=== PATIENT | male | born 1960 | race Caucasian/White ===

== ENCOUNTER 2017-08-22 10:47 | Outpatient (CLI) | payer OTHER ==
[2017-08-22 18:20] LABS: BASOPHILS # (AUTO) 0.1 10^3/uL (0.0-0.1); BASOPHILS % (AUTO) 0.8 %; EOSINOPHILS # (AUTO) 0.2 10^3/uL (0.0-0.7); EOSINOPHILS % (AUTO) 2.3 %; HGB - HEMOGLOBIN 16.2 g/dL (14.0-18.0); LYMPHOCYTES # (AUTO) 2.1 10^3/uL (1.5-3.5); MEAN CORPUSCULAR HEMOGLOBIN 30.5 pg (27.0-31.0); MEAN CORPUSCULAR HGB CONC 33.2 g/dL (32.0-36.0); MEAN PLATELET VOLUME 8.5 fL (7.4-11.4); MONOCYTES # (AUTO) 0.7 10^3/uL (0.0-1.0); MONOCYTES % (AUTO) 8.1 %; NEUTROPHILS # (AUTO) 5.2 10^3/uL (1.5-6.6); NEUTROPHILS % (AUTO) 62.8 %; PLT - PLATELET COUNT 188 10^3/uL (130-450); RED CELL DISTRIBUTION WIDTH 13.4 % (12.0-15.0); WHITE BLOOD COUNT 8.3 x10^3/uL (4.8-10.8)
[2017-08-22 18:33] LABS: ALBUMIN 4.2 g/dL (3.2-5.5); ALBUMIN/GLOBULIN RATIO 1.4 (1.0-2.2); ALKALINE PHOSPHATASE 47 IU/L (42-121); ALT ALANINE AMINOTRANSFERASE 21 IU/L (10-60); AST ASPARTATE AMINOTRANSFERASE 20 IU/L (10-42); BILIRUBIN,TOTAL 0.9 mg/dL (0.2-1.0); BUN - BLOOD UREA NITROGEN 16 mg/dL (6-20); CALCIUM 9.6 mg/dL (8.5-10.3); CARBON DIOXIDE - CO2 30 mmol/L (21-32); CHLORIDE 98 mmol/L (101-111); CHOL/HDL RATIO 5.4 (<5.0); CHOLESTEROL 225 mg/dL; CREATININE 0.8 mg/dL (0.6-1.2); GFR - MDRD 100 (>89); GLUCOSE 101 mg/dL (70-100); HDL CHOLESTEROL 42 mg/dL; LDL CHOLESTEROL,CALCULATED 170 mg/dL; SODIUM 138 mmol/L (135-145); TOTAL PROTEIN 7.2 g/dL (6.7-8.2); VLDL CHOLESTEROL 13 mg/dL
== END 2017-08-22 10:48 | disposition home or self-care (01) ==
LOC: LAB.F 10:47
PROVIDERS: ATTEND Physician Assistant Medical
DX: Z00.00 Encounter for general adult medical examination without abnormal findings (principal); E55.9 Vitamin D deficiency, unspecified
CPT/HCPCS: 36415; 80053; 80061; 82306; 84443; 85025

== ENCOUNTER 2017-09-10 13:18 | Outpatient (CLI) | payer OTHER | END 2017-09-10 13:19 | disposition home or self-care (01) | LOC: DI 13:18 | PROVIDERS: ATTEND Physician Assistant Medical | DX: R94.31 Abnormal electrocardiogram [ECG] [EKG] (principal); R07.89 Other chest pain; Z82.49 Family history of ischemic heart disease and other diseases of the circulatory system | CPT/HCPCS: 93306 ==

== ENCOUNTER 2018-10-08 08:07 | Outpatient (CLI) | payer OTHER ==
[2018-10-08 10:57] LABS: ALBUMIN 4.2 g/dL (3.2-5.5); ALBUMIN/GLOBULIN RATIO 1.4 (1.0-2.2); ALKALINE PHOSPHATASE 54 IU/L (42-121); ALT ALANINE AMINOTRANSFERASE 21 IU/L (10-60); AST ASPARTATE AMINOTRANSFERASE 23 IU/L (10-42); BUN - BLOOD UREA NITROGEN 14 mg/dL (6-20); CALCIUM 9.3 mg/dL (8.5-10.3); CARBON DIOXIDE - CO2 33 mmol/L (21-32); CHLORIDE 100 mmol/L (101-111); CHOL/HDL RATIO 3.3 (<5.0); CHOLESTEROL 192 mg/dL; CREATININE 0.8 mg/dL (0.6-1.2); GFR - MDRD 100 (>89); GLUCOSE 106 mg/dL (70-100); HDL CHOLESTEROL 58 mg/dL; SODIUM 138 mmol/L (135-145); TOTAL PROTEIN 7.1 g/dL (6.7-8.2)
[2018-10-08 11:17] LABS: LDL CHOLESTEROL,DIRECT 133 mg/dL; LDLD/HDL RATIO 2.3 (<3.6)
[2018-10-08 11:54] LABS: HB2 TOTAL 17.6 g/dL; HEMOGLOBIN A1C 0.69 g/dL; HEMOGLOBIN A1C % 5.7 % (4.6-6.2)
== END 2018-10-08 08:08 | disposition home or self-care (01) ==
LOC: LAB.F 08:07
PROVIDERS: ATTEND Internal Medicine
DX: Z00.00 Encounter for general adult medical examination without abnormal findings (principal); E78.5 Hyperlipidemia, unspecified; Z12.5 Encounter for screening for malignant neoplasm of prostate
CPT/HCPCS: 36415; 80053; 80061; 83036; 83721; 84153

== ENCOUNTER 2019-07-01 12:59 | Emergency (ER) | payer OTHER ==
[2019-07-01 13:32] LABS: BASOPHILS # (AUTO) 0.1 10^3/uL (0.0-0.1); BASOPHILS % (AUTO) 1.2 %; EOSINOPHILS # (AUTO) 0.2 10^3/uL (0.0-0.7); HGB - HEMOGLOBIN 15.6 g/dL (14.0-18.0); LYMPHOCYTES # (AUTO) 1.9 10^3/uL (1.5-3.5); LYMPHOCYTES % (AUTO) 32.6 %; MEAN CORPUSCULAR HEMOGLOBIN 32.7 pg (27.0-31.0); MEAN CORPUSCULAR HGB CONC 33.5 g/dL (32.0-36.0); MEAN CORPUSCULAR VOLUME 97.7 fL (80.0-94.0); MEAN PLATELET VOLUME 9.2 fL (7.4-11.4); MONOCYTES # (AUTO) 0.4 10^3/uL (0.0-1.0); MONOCYTES % (AUTO) 7.4 %; NEUTROPHILS # (AUTO) 3.2 10^3/uL (1.5-6.6); NEUTROPHILS % (AUTO) 55.6 %; PLT - PLATELET COUNT 170 10^3/uL (130-450); RED BLOOD COUNT 4.77 10^6/uL (4.70-6.10); RED CELL DISTRIBUTION WIDTH 13.3 % (12.0-15.0); WHITE BLOOD COUNT 5.7 x10^3/uL (4.8-10.8)
[2019-07-01 13:46] LABS: ALBUMIN 4.4 g/dL (3.2-5.5); ALBUMIN/GLOBULIN RATIO 1.4 (1.0-2.2); BILIRUBIN,TOTAL 0.6 mg/dL (0.2-1.0); CALCIUM 9.2 mg/dL (8.5-10.3); CREATININE 0.7 mg/dL (0.6-1.2); TOTAL PROTEIN 7.5 g/dL (6.7-8.2)
--- NOTE | 2019-07-01 14:14 | XRAY Report ---
Reason: chest pain Procedure Date: 07/01/2019 Accession Number: [id number] / [id number] Procedure: XR - Chest 2 View X-Ray CPT Code: 73803 Final Report FULL RESULT: EXAM: CHEST RADIOGRAPHY EXAM DATE: 07/01/2019 01:33 PM. CLINICAL HISTORY: Chest pain. COMPARISON: 09/21/2013 12:47 PM. TECHNIQUE: 2 views. FINDINGS: Lungs/Pleura: No focal opacities evident. No pleural effusion. No pneumothorax. Normal volumes. Mediastinum: Heart size and mediastinal contour are within normal limit. Multiple calcified hilar and mediastinal lymph nodes are again seen. Other: No acute osseous abnormalities. Gaseous distention of bowel in the upper abdomen. IMPRESSION: 1. No acute disease in the chest. 2. Prior granulomatous disease. RADIA
--- NOTE | 2019-07-01 14:16 | ED Physician Documentation ---
PD HPI CHEST PAIN - Stated complaint Stated Complaint: CHEST DISCOMFORT - Chief complaint Chief Complaint: Cardiac - History obtained from History obtained from: Patient - History of Present Illness Timing - onset: Today (58-year-old gentleman with no personal history of coronary disease. Remotely negative stress test. Does have some family history of coronary disease. Today he was at work and felt a very brief shocklike pain to the anterior sternum that was not radiating. It lasted at most a few seconds. Subsequent to that he had mild nausea than shortness of breath and now he is back to normal. He exercised last night, had no specific abnormal symptoms while exercising.) Review of Systems Constitutional: denies: Fatigue Nose: reports: Rhinorrhea / runny nose (chronic) Cardiac: denies: Palpitations, Pedal edema, Calf pain Respiratory: reports: Cough (mild). denies: Hemoptysis, Wheezing GI: denies: Abdominal Pain PD PAST MEDICAL HISTORY - Past Surgical History Past Surgical History: No - Present Medications Home Medications: Ambulatory Orders Medication Instructions Recorded Confirmed No Known Home Medications 09/21/13 09/21/13 - Allergies Allergies/Adverse Reactions: Allergies Allergy/AdvReac Type Severity Reaction Status Date / Time No Known Drug Allergies Allergy Verified 09/21/13 12:16 - Social History Does the pt smoke?: No Smoking Status: Never smoker Does the pt drink ETOH?: No Does the pt have substance abuse?: No - Immunizations Immunizations are current?: No Immunizations: TDAP >10years/unknown - POLST Patient has POLST: No PD ED PE NORMAL - Vitals Vital signs reviewed: Yes - General General: Alert and oriented X 3, No acute distress - HEENT HEENT: PERRL, EOMI - Neck Neck: Supple, no meningeal sign, No bony TTP - Cardiac Cardiac: RRR, No murmur - Respiratory Respiratory: No respiratory distress, Clear bilaterally - Abdomen Abdomen: Non tender - Extremities Extremities: No edema, No calf tenderness / cord - Neuro Neuro: Alert and oriented X 3, Normal speech Results - Vitals Vitals: Vital Signs - 24 hr 07/01/19 13:00 Temperature 36.4 C L Heart Rate 62 Respiratory 18 Rate Blood Pressure 158/82 H O2 Saturation 99 Oxygen O2 Source Room air - EKG (time done) 1314 Rate: Rate (enter#) (60) Rhythm: NSR T[place]: Normal Intervals: LBBB Compare to prior EKG: Other (He had an echocardiogram done in August of last year which documented a left bundle branch block.) - Labs Labs: Laboratory Tests 07/01/19 07/01/19 07/01/19 13:25 13:25 13:25 WBC 5.7 RBC 4.77 Hgb 15.6 Hct 46.6 MCV 97.7 H MCH 32.7 H MCHC 33.5 RDW 13.3 Plt Count 170 MPV 9.2 Neut # (Auto) 3.2 Lymph # (Auto) 1.9 [place] # (Auto) 0.4 Eos # (Auto) 0.2 Baso # (Auto) 0.1 Absolute Nucleated RBC 0.00 Nucleated RBC % 0.0 Sodium 141 Potassium 3.8 Chloride 103 Carbon Dioxide 31 Anion Gap 7.0 BUN 12 Creatinine 0.7 Estimated GFR (MDRD) 116 Glucose 109 H Calcium 9.2 Total Bilirubin 0.6 AST 18 ALT 16 Alkaline Phosphatase 55 Troponin I High Sens 5.3 Total Protein 7.5 Albumin 4.4 Globulin 3.1 Albumin/Globulin Ratio 1.4 Lipase 45 PD MEDICAL DECISION MAKING - ED course ED course: 58-year-old gentleman with known pre-existing left bundle branch block and very atypical chest pain today with negative work-up otherwise except for granulomatous disease on a chest x-ray noting he was born in [place], probably histoplasmosis. He is symptom-free now in follow-up for stress testing was advised. Departure - Departure Disposition: 01 Home, Self Care Clinical Impression: Chest pain Qualifiers: Chest pain type: chest pain on breathing Qualified Code(s): R07.1 - Chest pain on breathing; R07.81 - Pleurodynia Condition: Good Record reviewed to determine appropriate education?: Yes Instructions: ED Chest Pain NonCardiac Comments: Your work-up today suggests against any acute coronary or heart disease. That s aid take a baby aspirin a day and follow-up with [facility] and get a stress test scheduled. Return for recurrent or new symptoms.
[2019-07-01 14:25] VITALS: BP 144/90
== END 2019-07-01 14:26 | disposition home or self-care (01) ==
LOC: ED 12:59
DX: R07.1 Chest pain on breathing (principal); R07.81 Pleurodynia
CPT/HCPCS: 36415; 71046; 80053; 83690; 84484; 85025; 93005; 99283; 99284

== ENCOUNTER 2020-03-08 19:26 | Outpatient (CLI) | payer OTHER | END 2020-03-08 19:27 | disposition critical access hospital (66) | LOC: EMS 19:26 | PROVIDERS: ATTEND Surgery | DX: R10.31 Right lower quadrant pain (principal) | CPT/HCPCS: A0425; A0429 ==

== ENCOUNTER 2020-03-08 19:43 | Emergency (ER) | payer OTHER ==
--- NOTE | 2020-03-08 19:52 | ED Physician Documentation ---
History of Present Illness - Stated complaint Stated Complaint: ABD PAIN - History obtained from History obtained from: Patient (Patient is a 59-year-old male brought in by ambulance after he Experienced sudden onset of right lower quadrant pain. He denies syncope chest pain, he does report nausea and right lower quadrant pain denies any history of previous similar episodes he reports he is otherwise healthy.) Review of Systems Constitutional: reports: Reviewed and negative Eyes: reports: Reviewed and negative Ears: reports: Reviewed and negative Nose: reports: Reviewed and negative Throat: reports: Reviewed and negative Cardiac: reports: Reviewed and negative Respiratory: reports: Reviewed and negative GI: reports: Abdominal Pain, Nausea : reports: Reviewed and negative Skin: reports: Reviewed and negative Musculoskeletal: reports: Reviewed and negative Neurologic: reports: Reviewed and negative Psychiatric: reports: Reviewed and negative Endocrine: reports: Reviewed and negative Immunocompromised: reports: Reviewed and negative PD PAST MEDICAL HISTORY - Past Surgical History Past Surgical History: No - Present Medications Home Medications: Ambulatory Orders Medication Instructions Recorded Confirmed Hydrocodone/Acetaminophen [Guston 1 each PO Q6HR PRN #14 tablet 03/08/20 5-325 Tablet] Ondansetron Odt [Zofran Odt] 4 mg TL Q6H PRN #10 tablet 03/08/20 Tamsulosin [Flomax] 0.4 mg PO DAILY #7 capsule 03/08/20 - Allergies Allergies/Adverse Reactions: Allergies Allergy/AdvReac Type Severity Reaction Status Date / Time No Known Drug Allergies Allergy Verified 03/08/20 19:53 - Social History Does the pt smoke?: No Smoking Status: Never smoker Does the pt drink ETOH?: No Does the pt have substance abuse?: No - Immunizations Immunizations are current?: No Immunizations: TDAP >10years/unknown - POLST Patient has POLST: No PD ED PE NORMAL - Vitals Vital signs reviewed: Yes - General General: Alert and oriented X 3, No acute distress - HEENT HEENT: PERRL - Neck Neck: Supple, no meningeal sign - Cardiac Cardiac: RRR, No murmur - Respiratory Respiratory: Clear bilaterally - Abdomen Abdomen: Normal bowel sounds, Soft, Non distended, No organomegaly, Other (Tenderness in the right lower quadrant and right flank) - Derm Derm: Warm and dry - Extremities Extremities: No deformity, No tenderness to palpate, Normal ROM s pain, No edema, No calf tenderness / cord - Neuro Neuro: Alert and oriented X 3, aluminum welder 2-12 intact, No motor deficit, No sensory deficit, Normal speech - Psych Psych: Normal mood, Normal affect Results - Vitals Vitals: Vital Signs - 24 hr 03/08/20 03/08/20 03/08/20 19:53 21:55 23:00 Temperature 36.6 C Heart Rate 64 55 L 53 L Respiratory 18 16 12 Rate Blood Pressure 155/89 H 151/82 H 159/81 H O2 Saturation 100 98 96 Oxygen O2 Source Nasal cannula - Labs Labs: Laboratory Tests 03/08/20 03/08/20 03/08/20 19:45 19:45 19:45 WBC 7.3 RBC 4.66 L Hgb 15.5 Hct 45.3 MCV 97.2 H MCH 33.3 H MCHC 34.2 RDW 13.2 Plt Count 212 MPV 9.4 Neut # (Auto) 4.0 Lymph # (Auto) 2.4 [place] # (Auto) 0.6 Eos # (Auto) 0.2 Baso # (Auto) 0.1 Absolute Nucleated RBC 0.00 Nucleated RBC % 0.0 PT 11.7 INR 1.0 APTT 22.4 L Sodium 139 Potassium 3.7 Chloride 103 Carbon Dioxide 26 Anion Gap 10.0 BUN 18 Creatinine 0.9 Estimated GFR (MDRD) 87 L Glucose 130 H Lactic Acid Calcium 8.9 Total Bilirubin 0.7 AST 22 ALT 22 Alkaline Phosphatase 59 Total Creatine Kinase 67 Total Protein 7.1 Albumin 4.2 Globulin 2.9 Albumin/Globulin Ratio 1.4 Lipase 37 Ethyl Alcohol < 5.0 03/08/20 20:13 WBC RBC Hgb Hct MCV MCH MCHC RDW Plt Count MPV Neut # (Auto) Lymph # (Auto) [place] # (Auto) Eos # (Auto) Baso # (Auto) Absolute Nucleated RBC Nucleated RBC % PT INR APTT Sodium Potassium Chloride Carbon Dioxide Anion Gap BUN Creatinine Estimated GFR (MDRD) Glucose Lactic Acid 2.9 H Calcium Total Bilirubin AST ALT Alkaline Phosphatase Total Creatine Kinase Total Protein Albumin Globulin Albumin/Globulin Ratio Lipase Ethyl Alcohol PD MEDICAL DECISION MAKING - ED course Complexity details: reviewed results, re-evaluated patient, considered differential (History is consistent with possible nephrolithiasis or ureterolithiasis or appendicitis.), d/w patient (Work-up is consistent with bilateral ureterolithiasis. His pain is controlled I did offer to admit this patient for pain control and IV fluids and/or transfer for him to a higher level of care that would have urology. Patient would like to be discharged home. FU today w pcp & urology), other (Patient was hydrated with over 2 L of fluid his CT scan shows bilateral ureteral lithiasis on the right is 4 mm the left is 5 mm.Patient's afebrile, No leukocytosis.His pain is controlled.) Departure - Departure Disposition: Home, Self Care Clinical Impression: Ureterolithiasis Condition: Stable Instructions: ED Stone Renal W Colic Follow-Up: Dawson Blair MD [Primary Care Provider] - Tomorrow Xochilt Coelho MD [Physician No Access] - Tomorrow Prescriptions: Hydrocodone/Acetaminophen [Guston 5-325 Tablet] 1 each PO Q6HR PRN #14 tablet PRN Reason: Pain Tamsulosin [Flomax] 0.4 mg PO DAILY #7 capsule Ondansetron Odt [Zofran Odt] 4 mg TL Q6H PRN #10 tablet PRN Reason: Nausea / Vomiting Comments: Hydrate well, take Guston as directed as needed for pain, take Zofran as needed for nausea or vomiting. Call your primary care provider tomorrow for recheck call the urology office tomorrow to schedule an appointment. Discharge Date/Time: 03/09/20 00:05
[2020-03-08] MEDS ORDERED: ONDANSETRON 4 MG/2 ML VIAL IVP STA ×2 (19:58→21:42)
[2020-03-08] MEDS ORDERED: SODIUM CHLORIDE 0.9% 1,000 ML IV STA ×2 (19:58→20:32)
[2020-03-08] MEDS ORDERED: MORPHINE 2 MG/ML CARPUJECT IVP STA (19:58)
[2020-03-08 20:03] LABS: BASOPHILS # (AUTO) 0.1 10^3/uL (0.0-0.1); EOSINOPHILS # (AUTO) 0.2 10^3/uL (0.0-0.7); EOSINOPHILS % (AUTO) 3.2 %; HGB - HEMOGLOBIN 15.5 g/dL (14.0-18.0); LYMPHOCYTES # (AUTO) 2.4 10^3/uL (1.5-3.5); LYMPHOCYTES % (AUTO) 32.9 %; MEAN CORPUSCULAR HEMOGLOBIN 33.3 pg (27.0-31.0); MEAN CORPUSCULAR HGB CONC 34.2 g/dL (32.0-36.0); MEAN CORPUSCULAR VOLUME 97.2 fL (80.0-94.0); MEAN PLATELET VOLUME 9.4 fL (7.4-11.4); MONOCYTES # (AUTO) 0.6 10^3/uL (0.0-1.0); MONOCYTES % (AUTO) 8.1 %; NEUTROPHILS % (AUTO) 54.5 %; PLT - PLATELET COUNT 212 10^3/uL (130-450); RED BLOOD COUNT 4.66 10^6/uL (4.70-6.10); RED CELL DISTRIBUTION WIDTH 13.2 % (12.0-15.0); WHITE BLOOD COUNT 7.3 x10^3/uL (4.8-10.8)
[2020-03-08] MEDS ORDERED: IOVERSOL 320 100 ML VIAL IVP ONE ×2 (20:07→21:27)
[2020-03-08 20:13] LABS: ALBUMIN 4.2 g/dL (3.2-5.5); ALBUMIN/GLOBULIN RATIO 1.4 (1.0-2.2); ALKALINE PHOSPHATASE 59 IU/L (42-121); ALT ALANINE AMINOTRANSFERASE 22 IU/L (10-60); AST ASPARTATE AMINOTRANSFERASE 22 IU/L (10-42); BILIRUBIN,TOTAL 0.7 mg/dL (0.2-1.0); BUN - BLOOD UREA NITROGEN 18 mg/dL (6-20); CALCIUM 8.9 mg/dL (8.5-10.3); CARBON DIOXIDE - CO2 26 mmol/L (21-32); CHLORIDE 103 mmol/L (101-111); CK- CREATINE KINASE 67 IU/L (22-269); CREATININE 0.9 mg/dL (0.6-1.2); GLUCOSE 130 mg/dL (70-100); LIPASE 37 U/L (22-51); SODIUM 139 mmol/L (135-145); TOTAL PROTEIN 7.1 g/dL (6.7-8.2)
[2020-03-08 20:15] LABS: PT - PROTHROMBIN TIME 11.7 secs (9.9-12.6)
[2020-03-08 20:22] LABS: PARTIAL THROMBOPLASTIN TIME 22.4 secs (24.9-33.3)
[2020-03-08] MEDS ORDERED: HYDROmorphone 0.5 MG/0.5 ML SYRINGE IVP STA ×2 (21:42→22:46)
--- NOTE | 2020-03-08 21:50 | CT Report ---
PROCEDURE: Abdomen/Pelvis W INDICATIONS: RLQ PAIN CONTRAST: IV CONTRAST: Optiray 320 ml: 100 PO CONTRAST: *NO PO CONTRAST TECHNIQUE: After the administration of oral and intravenous contrast, 5 mm thick sections acquired from the diap hragms to the symphysis. 5 mm thick coronal and sagittal reformats were acquired. For radiation dos e reduction, the following was used: automated exposure control, adjustment of mA and/or kV accordin g to patient size. COMPARISON: None. FINDINGS: Image quality: Excellent. ABDOMEN: Lung bases: Bibasilar dependent atelectasis is seen. Heart size is normal. Solid organs: Liver and spleen are normal in size and enhancement. Gallbladder is within normal nichols its Biliary system is non dilated. Pancreas enhances normally. No adrenal nodules. Bilateral kidne ys are normal in size. There is prominence of right renal collecting system and right ureter extendin g to distal right ureter with suggestion of a 4 mm distal right ureteral stone approximately 1.2 cm f rom right UVJ. There is also prominence of left renal collecting system with small amount of left per inephric fluid and small to moderate amount of fluid adjacent to anterior aspect of left renal pelvis and proximal left ureter. There is suggestion of 5 mm calcification in distal left ureter approximat megan 1.5 cm from left UVJ. Peritoneum and bowel: Bowel loops demonstrate normal wall thickness and caliber. No free fluid or a ir. Appendix is visualized and is within normal limits. Mild sigmoid diverticulosis is seen, no evid ence of acute diverticulitis. Nodes and vessels: No retroperitoneal or mesenteric adenopathy by size criteria. Aorta and inferior vena cava are normal in size. Miscellaneous: No ventral hernias. PELVIS: Genitourinary: Bladder wall thickness is normal. Miscellaneous: No inguinal hernias or adenopathy. There is suggestion of bilateral hydrocele. Bones: No suspicious bony lesions. No vertebral body compression fractures. IMPRESSION: 1. Normal appendix. No bowel obstruction. No abnormal bowel wall thickening. No free fluid or free ai r. Mild colonic diverticulosis with no evidence of acute diverticulitis. 2. Suggestion of bilateral distal ureteral stones with mild to moderate bilateral hydronephrosis and proximal to mid hydroureter. There is small amount of left perinephric fluid as well as small amount of fluid adjacent to left renal pelvis and proximal ureter. Clinical correlation is recommended. No bladder stone. Bladder wall thickness is normal. 3. Suggestion of small bilateral hydrocele. Reviewed by: Jorge Mittal MD on 03/08/2020 9:49 PM PDT Approved by: Jorge Mittal MD on 03/08/2020 9:49 PM PDT Station ID: [id number]
[2020-03-08 23:31] VITALS: BP 159/81
[2020-03-08] MEDS ORDERED: ONDANSETRON ODT 4 MG Prepack 2 TL PRN (23:44)
[2020-03-08] MEDS ORDERED: HYDROcod/ACET 5/325 Prepack 4 PO STA (23:44)
[2020-03-08] MEDS ORDERED: HYDROcod/ACETAM 5/325 MG TABLET PO STA (23:53)
== END 2020-03-09 00:05 | disposition home or self-care (01) ==
LOC: EDUNIT# → ED 19:43
DX: N13.2 Hydronephrosis with renal and ureteral calculous obstruction (principal)
CPT/HCPCS: 36415; 74177; 80053; 80320; 82550; 83605; 83690; 85025; 85610; 85730; 96361; 96374; 96375; 96376; 99283; 99284; A9270; J1170; Q9967

== ENCOUNTER 2022-10-22 12:21 | Emergency (ER) | payer OTHER ==
[2022-10-22] MEDS ORDERED: NITROGLYCERIN SL 0.4 MG TABLET SL STA ×2 (12:47→13:26)
[2022-10-22] MEDS ORDERED: ASPIRIN CHEW 81 MG TABLET PO STA (12:47)
--- NOTE | 2022-10-22 12:49 | ED Physician Documentation ---
PD HPI CHEST PAIN - Stated complaint Stated Complaint: CHEST PX - Chief complaint Chief Complaint: Cardiac - History obtained from History obtained from: Patient - Additional information Additional information: 62-year-old gentleman with no history of coronary disease. Review of the chart shows he had a known left bundle branch block from prior visit. He was at work at his desk about 45 minutes ago, noon today when he developed substernal chest pressure with some pain in both arms. Is associated with sweatiness and shortness of breath. No radiation to the back. He is never had this before. No pedal edema or calf pain. No recent travel. He has a history of hyperlipidemia which improved with weight loss. He is on no meds. PD PAST MEDICAL HISTORY - Past Surgical History Past Surgical History: No - Present Medications Home Medications: Ambulatory Orders Medication Instructions Recorded Confirmed No Known Home Medications 10/22/22 10/22/22 - Allergies Allergies/Adverse Reactions: Allergies Allergy/AdvReac Type Severity Reaction Status Date / Time No Known Drug Allergies Allergy Verified 10/22/22 12:37 - Social History Does the pt smoke?: No Smoking Status: Never smoker Does the pt drink ETOH?: No Does the pt have substance abuse?: No - Immunizations Immunizations are current?: No Immunizations: TDAP >10years/unknown - POLST Patient has POLST: No PD ED PE NORMAL - Vitals Vital signs reviewed: Yes - General General: Alert and oriented X 3, Other (He is pale) - HEENT HEENT: PERRL, EOMI - Neck Neck: Supple, no meningeal sign, No bony TTP - Cardiac Cardiac: RRR, No murmur - Respiratory Respiratory: No respiratory distress, Clear bilaterally - Abdomen Abdomen: Non tender - Extremities Extremities: No edema, No calf tenderness / cord - Neuro Neuro: Alert and oriented X 3, Normal speech Results - Vitals Vitals: Vital Signs - 24 hr 10/22/22 10/22/22 10/22/22 12:29 13:20 13:24 Temperature 36.4 C L Heart Rate 53 L 57 L 5 L Respiratory 18 15 12 Rate Blood Pressure 118/75 128/87 H 122/81 H O2 Saturation 100 99 99 If not protocol : Oxygen Flow, liters/minute 10/22/22 10/22/22 10/22/22 13:31 14:30 15:00 Temperature Heart Rate 59 L 59 L 64 Respiratory 14 14 16 Rate Blood Pressure 106/74 106/78 120/79 O2 Saturation 98 100 100 If not protocol : Oxygen Flow, liters/minute 10/22/22 10/22/22 10/22/22 15:22 16:04 16:30 Temperature Heart Rate 63 68 67 Respiratory 12 10 L 15 Rate Blood Pressure 120/79 117/71 124/79 O2 Saturation 100 99 99 If not protocol : Oxygen Flow, liters/minute 10/22/22 10/22/22 10/22/22 17:00 17:37 18:00 Temperature Heart Rate 69 71 67 Respiratory 14 20 17 Rate Blood Pressure 121/73 121/73 117/76 O2 Saturation 96 97 96 If not protocol : Oxygen Flow, liters/minute 10/22/22 10/22/22 10/22/22 18:30 19:00 19:30 Temperature Heart Rate 69 72 68 Respiratory 21 13 17 Rate Blood Pressure 111/77 106/75 129/72 O2 Saturation 95 93 92 If not protocol : Oxygen Flow, liters/minute 10/22/22 20:00 Temperature Heart Rate 65 Respiratory 18 Rate Blood Pressure 108/72 O2 Saturation 96 If not protocol 2 : Oxygen Flow, liters/minute Oxygen O2 Source Nasal cannula Oxygen Flow Rate 2 - EKG (time done) 1230 Rate: Rate (enter#) (53) Rhythm: NSR Intervals: LBBB Compare to prior EKG: Unchanged from prior EKG (Compared with July 01, 2019, the left bundle branch is old and the overall morphology is similar. Flatter T waves in V5 and V6 which could be lead placement.) Computer interpretation: Agree with computer 1255 Rate: Rate (enter#) (55) Rhythm: NSR Intervals: LBBB Compare to prior EKG: Unchanged from prior EKG (No change from initial EKG done at 1230 on the same date.) Computer interpretation: Agree with computer 1911 Rate: Rate (enter#) (70) Rhythm: NSR Intervals: LBBB Compare to prior EKG: Unchanged from prior EKG - Labs Labs: Laboratory Tests 10/22/22 10/22/22 10/22/22 12:56 12:56 12:56 WBC 6.2 RBC 4.82 Hgb 14.9 Hct 45.4 MCV 94.2 H MCH 30.9 MCHC 32.8 RDW 13.2 Plt Count 182 MPV 9.4 Neut # (Auto) 3.4 Lymph # (Auto) 1.9 [place] # (Auto) 0.5 Eos # (Auto) 0.2 Baso # (Auto) 0.1 Absolute Nucleated RBC 0.00 Nucleated RBC % 0.0 Sodium 137 Potassium 3.8 Chloride 98 L Carbon Dioxide 27 Anion Gap 12.0 BUN 13 Creatinine 0.8 Estimated GFR (MDRD) 98 Glucose 131 H Calcium 8.6 Total Bilirubin 0.5 AST 19 ALT 15 Alkaline Phosphatase 46 Troponin I High Sens 6.1 Total Protein 6.7 Albumin 3.9 Globulin 2.8 Albumin/Globulin Ratio 1.4 Lipase 39 SARS-CoV-2 (PCR) 10/22/22 10/22/22 10/22/22 14:48 15:50 19:03 WBC RBC Hgb Hct MCV MCH MCHC RDW Plt Count MPV Neut # (Auto) Lymph # (Auto) [place] # (Auto) Eos # (Auto) Baso # (Auto) Absolute Nucleated RBC Nucleated RBC % Sodium Potassium Chloride Carbon Dioxide Anion Gap BUN Creatinine Estimated GFR (MDRD) Glucose Calcium Total Bilirubin AST ALT Alkaline Phosphatase Troponin I High Sens 22.4 H* 1067.5 H* Total Protein Albumin Globulin Albumin/Globulin Ratio Lipase SARS-CoV-2 (PCR) NOT DETECTED - Rads (name of study) 1v cxr - NAD Radiology: Final report received, EMP read indepedently PD Medical Decision Making - ED course ED course: 62-year-old gentleman with typical chest pain. He arrives very quickly and has a left bundle branch block on EKG that is old, no other clear signs of ischemia on the EKG. Initial troponin was negative but still having pain and a subsequent troponin was significantly trending up which is most consistent with unstable angina/NSTEMI. Search was begun for tertiary facility with cardiac coverage at approximately 3:24 PM and he was started on Lovenox, atorvastatin. Metoprolol was held given heart rate below 60. Accepted by Dr Jerry Roman to [facility] at 1554 Unfortunately bed was not immediately available. We are awaiting a bed. His brother is an correction lieutenant who I spoke with on the phone and he was frustrated by the fact that we could not send him without formal acceptance. We discussed EMTALA that dictated the process of interhospital transfers. And that I cannot legally send him to [facility] without hospital acceptance. He was still having ongoing pain, a repeat EKG was done and without changes. His troponin is going up significantly though. He was started on a nitroglycerin drip. We called [facility] back and it was sounding more pessimistic that they would have a bed tonight. At 8 [address] spoke with Dr[address] Thomas at [facility] and she will look for a bed as well. I called [facility] back to update the healthcare liaison with increased troponin and he is still having pain. This time speaking with Dr. Love. He recommended speaking with their night warehouse manager. I also presented the case to [facility] at 9:17 PM. They will call me back but are very pessimistic about any bed availability. [facility] in the interim had called [facility] and I discussed the case with Dr. Haider Ch at approximately 9:25 PM and he recommended trying to affect an ED to ED transfer. Excepted by Dr. Aponte to the hospitalist service at [facility] at 9:29 PM. - Critical Care Time(min): 55 Time Includes: Direct patient care, Review records, Reassess patient, Document care, Coordinate care, Medical consult, Family consult for tx dec Data interpretation: Labs, Pulse ox Procedures included in critical care time: Peripheral IV Procedures excluded from critical care time: EKG Departure - Departure Disposition: 02 Transfer Acute Care Hosp Clinical Impression: NSTEMI (non-ST elevated myocardial infarction) Condition: Serious
[2022-10-22 13:02] LABS: BASOPHILS # (AUTO) 0.1 10^3/uL (0.0-0.1); EOSINOPHILS # (AUTO) 0.2 10^3/uL (0.0-0.7); EOSINOPHILS % (AUTO) 3.5 %; HCT - HEMATOCRIT 45.4 % (42.0-52.0); HGB - HEMOGLOBIN 14.9 g/dL (14.0-18.0); LYMPHOCYTES # (AUTO) 1.9 10^3/uL (1.5-3.5); LYMPHOCYTES % (AUTO) 31.2 %; MEAN CORPUSCULAR HEMOGLOBIN 30.9 pg (27.0-31.0); MEAN CORPUSCULAR HGB CONC 32.8 g/dL (32.0-36.0); MEAN CORPUSCULAR VOLUME 94.2 fL (80.0-94.0); MEAN PLATELET VOLUME 9.4 fL (7.4-11.4); MONOCYTES # (AUTO) 0.5 10^3/uL (0.0-1.0); MONOCYTES % (AUTO) 8.7 %; NEUTROPHILS # (AUTO) 3.4 10^3/uL (1.5-6.6); NEUTROPHILS % (AUTO) 55.3 %; PLT - PLATELET COUNT 182 10^3/uL (130-450); RED BLOOD COUNT 4.82 10^6/uL (4.70-6.10); RED CELL DISTRIBUTION WIDTH 13.2 % (12.0-15.0); WHITE BLOOD COUNT 6.2 x10^3/uL (4.8-10.8)
--- NOTE | 2022-10-22 13:03 | XRAY Report ---
PROCEDURE: Chest 1 View X-Ray INDICATIONS: Chest pain TECHNIQUE: One view of the chest was acquired. COMPARISON: 07/11/2019 FINDINGS: Surgical changes and devices: None. Lungs and pleura: No pleural effusions or pneumothorax. Lungs are clear of acute opacities. Stable small calcified granulomas. Mediastinum: Mediastinal contours appear normal. Heart size is normal. Bones and chest wall: No suspicious bony lesions. Overlying soft tissues appear unremarkable. IMPRESSION: No acute cardiopulmonary disease process. Reviewed by: Zaida Galindo MD, PhD on 10/22/2022 1:02 PM PST Approved by: Zaida Galindo MD, PhD on 10/22/2022 1:02 PM [facility] Station ID: [id number]
[2022-10-22 13:20] LABS: ALBUMIN 3.9 g/dL (3.2-5.5); ALBUMIN/GLOBULIN RATIO 1.4 (1.0-2.2); BILIRUBIN,TOTAL 0.5 mg/dL (0.2-1.0); CALCIUM 8.6 mg/dL (8.5-10.3); CREATININE 0.8 mg/dL (0.6-1.2); POTASSIUM 3.8 mmol/L (3.5-5.0); TOTAL PROTEIN 6.7 g/dL (6.7-8.2)
[2022-10-22] MEDS ORDERED: NITROGLYCERIN 2% PASTE TOP STA (13:26)
[2022-10-22] MEDS ORDERED: ATORVASTATIN 40 MG TABLET PO STA (15:22)
[2022-10-22] MEDS ORDERED: ENOXAPARIN 100 MG/ML SYRINGE SUBQ STA (15:22)
[2022-10-22] MEDS ORDERED: ONDANSETRON 4 MG/2 ML VIAL IVP PRN (15:23)
[2022-10-22] MEDS ORDERED: ACETAMINOPHEN 500 MG TABLET PO PRN (15:23)
[2022-10-22] MEDS ORDERED: MORPHINE 2 MG/ML CARPUJECT IVP STA (18:57)
[2022-10-22] MEDS ORDERED: NITROGLYCERIN 50 MG/250 ML 50 MG/250 ML BOTTLE IV STA (19:13)
[2022-10-22] MEDS ORDERED: ATORVASTATIN 40 MG TABLET PO SCH (21:00)
[2022-10-22] MEDS ORDERED: ENOXAPARIN 100 MG/ML SYRINGE SUBQ SCH (21:00)
[2022-10-22 22:31] VITALS: BP 118/76
[2022-10-23] MEDS ORDERED: ASPIRIN CHEW 81 MG TABLET PO SCH (09:00)
== END 2022-10-22 22:31 | disposition short-term general hospital (02) ==
LOC: ED 12:21
DX: I21.4 Non-ST elevation (NSTEMI) myocardial infarction (principal); Z20.822 Contact with and (suspected) exposure to COVID-19
CPT/HCPCS: 36415; 71045; 80053; 83690; 84484; 85025; 87635; 93005; 96365; 96366; 96372; 96375; 99291; A9270; J1650

== ENCOUNTER 2022-10-22 22:34 | Outpatient (CLI) | payer OTHER | END 2022-10-22 22:35 | disposition short-term general hospital (02) | LOC: EMS 22:34 | PROVIDERS: ATTEND Emergency Medicine | DX: I21.4 Non-ST elevation (NSTEMI) myocardial infarction (principal) | CPT/HCPCS: A0425; A0426 ==

== ENCOUNTER 2023-02-13 13:18 | Outpatient (CLI) | payer OTHER ==
[2023-02-13 19:45] LABS: HCT - HEMATOCRIT 46.2 % (42.0-52.0); MEAN CORPUSCULAR HEMOGLOBIN 30.9 pg (27.0-31.0); MEAN CORPUSCULAR HGB CONC 32.5 g/dL (32.0-36.0); MEAN CORPUSCULAR VOLUME 95.1 fL (80.0-94.0); RED BLOOD COUNT 4.86 10^6/uL (4.70-6.10); RED CELL DISTRIBUTION WIDTH 13.6 % (12.0-15.0); WHITE BLOOD COUNT 7.1 x10^3/uL (4.8-10.8)
[2023-02-13 19:51] LABS: INR 1.1 (0.8-1.2); PT - PROTHROMBIN TIME 11.5 secs (9.9-12.6)
[2023-02-13 20:09] LABS: PARTIAL THROMBOPLASTIN TIME 31.2 secs (24.9-33.3)
== END 2023-02-13 13:19 | disposition home or self-care (01) ==
LOC: LAB.S 13:18
PROVIDERS: ATTEND Nurse Practitioner
DX: I23.6 Thrombosis of atrium, auricular appendage, and ventricle as current complications following acute myocardial infarction (principal)
CPT/HCPCS: 36415; 85027; 85610; 85730

== ENCOUNTER 2023-02-24 12:10 | Outpatient (CLI) | payer OTHER | END 2023-02-24 12:11 | disposition home or self-care (01) | LOC: LAB 12:10 | PROVIDERS: ATTEND Internal Medicine | DX: I50.9 Heart failure, unspecified (principal); Z79.01 Long term (current) use of anticoagulants; I21.3 ST elevation (STEMI) myocardial infarction of unspecified site | CPT/HCPCS: 36416; 85610 ==

== ENCOUNTER 2023-04-14 14:06 | Outpatient (CLI) | payer OTHER | END 2023-04-14 14:07 | disposition home or self-care (01) | LOC: LAB 14:06 | PROVIDERS: ATTEND Internal Medicine | DX: Z79.01 Long term (current) use of anticoagulants (principal) | CPT/HCPCS: 36416; 85610 ==

== ENCOUNTER 2023-04-24 13:36 | Outpatient (CLI) | payer OTHER ==
[2023-04-24 14:17] LABS: ALBUMIN 4.1 g/dL (3.2-5.5); ALBUMIN/GLOBULIN RATIO 1.5 (1.0-2.2); BILIRUBIN,TOTAL 0.8 mg/dL (0.2-1.0); CALCIUM 9.3 mg/dL (8.5-10.3); CREATININE 0.8 mg/dL (0.6-1.3); POTASSIUM 4.3 mmol/L (3.5-4.5); TOTAL PROTEIN 6.8 g/dL (6.4-8.9)
== END 2023-04-24 13:37 | disposition home or self-care (01) ==
LOC: LAB 13:36
PROVIDERS: ATTEND Internal Medicine Cardiovascular Disease
DX: Z79.01 Long term (current) use of anticoagulants (principal); I50.20 Unspecified systolic (congestive) heart failure
CPT/HCPCS: 36415; 80053; 85610

== ENCOUNTER 2023-05-01 13:15 | Outpatient (CLI) | payer OTHER | END 2023-05-01 13:16 | disposition home or self-care (01) | LOC: LAB 13:15 | PROVIDERS: ATTEND Internal Medicine | DX: Z79.01 Long term (current) use of anticoagulants (principal) | CPT/HCPCS: 36416; 85610 ==

== ENCOUNTER 2023-06-02 15:04 | Outpatient (CLI) | payer OTHER | END 2023-06-02 15:05 | disposition home or self-care (01) | LOC: LAB 15:04 | PROVIDERS: ATTEND Internal Medicine | DX: Z79.01 Long term (current) use of anticoagulants (principal) | CPT/HCPCS: 36416; 85610 ==

== ENCOUNTER 2023-07-03 14:29 | Outpatient (CLI) | payer OTHER | END 2023-07-03 14:30 | disposition home or self-care (01) | LOC: LAB 14:29 | PROVIDERS: ATTEND Internal Medicine | DX: Z79.01 Long term (current) use of anticoagulants (principal) | CPT/HCPCS: 36416; 85610 ==

== ENCOUNTER 2023-07-29 15:32 | Outpatient (CLI) | payer OTHER | END 2023-07-29 15:33 | disposition home or self-care (01) | LOC: LAB 15:32 | PROVIDERS: ATTEND Internal Medicine | DX: Z79.01 Long term (current) use of anticoagulants (principal) | CPT/HCPCS: 36416; 85610 ==

== ENCOUNTER 2024-01-29 13:10 | Outpatient (CLI) | payer OTHER | END 2024-01-29 13:11 | disposition home or self-care (01) | LOC: LAB 13:10 | PROVIDERS: ATTEND Internal Medicine | DX: Z51.81 Encounter for therapeutic drug level monitoring (principal); Z79.01 Long term (current) use of anticoagulants | CPT/HCPCS: 36416; 85610 ==

== ENCOUNTER 2024-04-06 15:15 | Outpatient (CLI) | payer OTHER | END 2024-04-06 15:16 | disposition home or self-care (01) | LOC: LAB 15:15 | PROVIDERS: ATTEND Internal Medicine | DX: Z79.01 Long term (current) use of anticoagulants (principal) | CPT/HCPCS: 85610 ==

== ENCOUNTER 2024-05-04 13:34 | Outpatient (CLI) | payer OTHER | END 2024-05-04 13:35 | disposition home or self-care (01) | LOC: LAB 13:34 | PROVIDERS: ATTEND Internal Medicine | DX: Z51.81 Encounter for therapeutic drug level monitoring (principal); Z79.01 Long term (current) use of anticoagulants | CPT/HCPCS: 36416; 85610 ==